=== PATIENT | female | born 2000 | race Caucasian/White ===

== ENCOUNTER 2020-10-21 08:15 | Day surgery (SDC) | payer BC ==
[~2020-10-21] VITALS: Ht 177.8 cm; Wt 65.9 kg
[2020-10-21] MEDS ORDERED: NEURONTIN100 MG/CAP PO (08:29)
[2020-10-21] MEDS ORDERED: MOBIC15 MG PO (08:29)
[2020-10-21 08:47] LABS: COLLECTION METHOD CLEAN CATCH
[2020-10-21 08:51] LABS: BASO % 0.2 % (0.0-2.0); EOS % 0.3 % (0-4.0); GRAN # 12.6 (1.4-6.5); GRAN % 81.8 % (42.2-75.2); HEMOGLOBIN 14.2 g/dl (12.5-16.0); LYMPH # 1.5 (1.2-3.4); LYMPH % 9.5 % (20.0-51.0); MEAN CELL VOLUME 92 fl (80.0-100.0); MEAN CORPUSCULAR HEMOGLOBIN 32 pg (27.0-31.0); MEAN CORPUSCULAR HGB CONC 35 g/dl (33.0-37.0); MONO # 1.2 (0.1-0.6); MONO % 7.9 % (1.7-9.3); PLATELET COUNT 254 K/mm3 (130-400); RED BLOOD COUNT 4.46 M/mm3 (4.10-5.30); REDCELL DISTRIBUTION WIDTH-CV 12.2 % (11.5-14.5)
[2020-10-21 08:58] LABS: ALBUMIN 4.3 gm/dL (3.5-5.0); BILIRUBIN,TOTAL 0.6 mg/dL (0.0-1.0); CALCIUM 9.6 mg/dL (8.4-10.2); CREATININE, serum 0.6 (0.52-1.25); TOTAL PROTEIN 7.2 gm/dL (6.4-8.2)
[2020-10-21 09:03] LABS: AMORPHOUS CRYSTAL Present /uL; MUCOUS Present /lpf; PH 8 (5-8); URINE APPEARANCE Cloudy; URINE BACTERIA Rare /hpf; URINE BILIRUBIN Negative (NEGATIVE); URINE BLOOD Negative (NEGATIVE); URINE COLOR Yellow; URINE GLUCOSE Negative (NEGATIVE); URINE KETONE Negative (NEGATIVE); URINE LEUKOCYTE ESTERASE Trace (NEGATIVE); URINE NITRATE Negative (NEGATIVE); URINE PROTEIN(semi-quant) Negative (NEGATIVE); URINE RBC 0-2 /hpf; URINE UROBILINOGEN Negative (NEGATIVE)
[2020-10-21 12:40] VITALS: BP 104/60; PULSE 67; TEMP 97.8
--- NOTE | 2020-10-21 12:40 | NUR ---
Pt arrived on unit from PACU. Report received and care assumed.
[2020-10-21 12:55] VITALS: BP 109/63; PULSE 70
[2020-10-21 13:10] VITALS: BP 101/53; PULSE 73
[2020-10-21 13:25] VITALS: BP 106/66; PULSE 66
[2020-10-21 13:55] VITALS: BP 114/65; PULSE 70
[2020-10-21 14:25] VITALS: BP 113/62; PULSE 65
--- NOTE | 2020-10-21 15:20 | NUR ---
Discharge instructions and follow up care reviewed with pt and her mother at the bedside. Both verbalized an understanding, agreed with the plan and states no questions or concerns at this time.
== END 2020-10-21 15:30 | disposition home or self-care (01) ==
LOC: COL.ER 08:15 → OB 11:23 → SDCO 11:23 → OB 11:24 → SDCO 15:30
PROVIDERS: Student in an Organized Health Care Education/Training Program
DX: K35.80 Unspecified acute appendicitis (principal); Z20.822 Contact with and (suspected) exposure to COVID-19; Z79.899 Other long term (current) drug therapy
CPT/HCPCS: OP; J1100; J1885; J1956; J2175; J2270; J2405; J2550; J2704; J2710; J3010; J7030; J7120; Q9967